=== PATIENT | female | born 1995 | race Caucasian/White ===

== ENCOUNTER 2018-07-14 06:13 | Emergency (ER) | payer OTHER ==
[~2018-07-14] VITALS: Ht 170.2 cm; Wt 56.7 kg
--- NOTE | 2018-07-14 06:15 | NUR ---
PT BIB FRIEND C/O UPPER BACK AND SCALP PAIN. PT STATES SUDDEN ONSET OF UPPER BACK PAIN W/ RASH TO UPPER BACK, SHOULDERS AND SCALP, PT STATES HER THROAT FELT SWOLLEN. PT STATES 5/10 BURNING PAIN TO UPPER BACK AND SCALP AT THIS TIME. NO RASH, SWELLING OR REDNESS TO NECK, SHOULDERS OR ARMS BL NOTED AT THIS TIME; AIRWAY PATENT; BREATHING EQUAL AND UNLABORED. CLEAR SPEECH. SKIN WARM, DRY AND INTACT. PT IN BED; BED IN LOWER LOCKED POSITION. ER MD AWARE OF PT STATUS. WILL CONTINUE TO MONITOR. PMH: ADHA RX: MAGAN
--- NOTE | 2018-07-14 06:16 | NUR ---
PT TAKEN TO BED 12
[2018-07-14 06:22] VITALS: BP 144/89
--- NOTE | 2018-07-14 06:25 | NUR ---
DR. VENEGAS AT BEDSIDE FOR EVALUATION.
[2018-07-14] MEDS ORDERED: LISD50TA PO (06:30)
[2018-07-14] MEDS ORDERED: LORazepam 2 MG/ML VIAL IM ONE (06:30)
--- NOTE | 2018-07-14 06:40 | NUR ---
PT REFUSED MED AT THIS TIME. ER AWARE.
--- NOTE | 2018-07-14 06:47 | NUR ---
LAB AT BEDSIDE.
[2018-07-14 07:02] LABS: BASOPHILS # (AUTO) 0.1 K/uL (0.00-0.22); BASOPHILS % (AUTO) 1.1 % (0.0-2.0); EOSINOPHILS % (AUTO) 0.5 % (0.0-4.0); LYMPHOCYTES # (AUTO) 1.4 K/uL (2.5-16.5); LYMPHOCYTES % (AUTO) 25.9 % (20.5-51.1); MEAN CORPUSCULAR HEMOGLOBIN 31 pg (27-31); MEAN CORPUSCULAR HGB CONC 35 g/dL (33-37); MEAN CORPUSCULAR VOLUME 90.3 fL (80-94); MONOCYTES # (AUTO) 0.5 K/uL (0.8-1.0); MONOCYTES % (AUTO) 10.1 % (1.7-9.3); NEUTROPHILS # (AUTO) 3.4 K/uL (1.8-7.7); NEUTROPHILS % (AUTO) 62.4 % (42.2-75.2); PLATELET COUNT (AUTO) 265 K/uL (140-450); RED BLOOD CELL COUNT(AUTO) 4.76 MIL/uL (4.20-5.40); RED CELL DISTRIBUTION WIDTH 11.9 % (11.6-13.7); WHITE BLOOD COUNT (AUTO) 5.4 K/uL (4.8-10.8)
[2018-07-14 07:08] LABS: CARBON DIOXIDE 26.6 mmol/L (21-32); CREATININE 0.7 mg/dL (0.6-1.3); POTASSIUM 3.6 mmol/L (3.5-5.1)
--- NOTE | 2018-07-14 07:09 | NUR ---
X-Ray at bedside. EXAM NOT PERFORMED
[2018-07-14 07:14] LABS: ALBUMIN 4.2 g/dL (3.4-5.0); TOTAL BILIRUBIN 0.7 mg/dL (0.0-1.0)
[2018-07-14 07:17] LABS: BARBITURATE, URINE NEG. ng/ml (NEG <=200); BENZODIAZEPINE, URINE NEG. ng/mL (NEG <=200); CANNABINOID, URINE NEG. ng/mL (NEG <=50); COCAINE, URINE NEG. ng/mL (NEG <=300); OPIATE, URINE NEG. ng/mL (NEG <=2000); PHENCYCLIDINE SCREEN,URINE NEG. ng/mL (NEG <=25)
--- NOTE | 2018-07-14 07:20 | NUR ---
Pt report given to PRECIOUS Martinez. Transfer of care at this time.
--- NOTE | 2018-07-14 07:21 | NUR ---
RECEIVED REPORT FROM PATTERN DRAFTER RN.
--- NOTE | 2018-07-14 07:23 | NUR ---
DR. RUGGIERO AT BEDSIDE FOR EVALUATION.
--- NOTE | 2018-07-14 07:25 | NUR ---
PT BEING SEEN BY ER AT THIS TIME.
[2018-07-14 07:48] VITALS: BP 138/80
--- NOTE | 2018-07-14 07:48 | NUR ---
Patient discharged with v/s stable. Written and verbal after care instructions given and explained. Patient alert, oriented and verbalized understanding of instructions. Ambulatory with steady gait. All questions addressed prior to discharge. ID band removed. Patient advised to follow up with PMD. Rx of CLARITIN given. Patient educated on indication of medication including possible reaction and side effects. Opportunity to ask questions provided and answered.
== END 2018-07-14 07:48 | disposition home or self-care (01) ==
LOC: MED 06:13
DX: F41.9 Anxiety disorder, unspecified (principal); R06.4 Hyperventilation; Z79.899 Other long term (current) drug therapy
CPT/HCPCS: 36415; 80053; 80305; 81002; 81025; 85025; 99283; J2060